=== PATIENT | female | born 1970 | race Caucasian/White ===

== ENCOUNTER 2022-04-29 21:07 | Emergency (ER) | payer OTHER, MEDICAID, SELFPAY ==
[2022-04-29 21:10] VITALS: BP 144/83; PULSE 85; RESP 21; TEMP 37.1; O2SAT 100; BMI 23.0
[2022-04-29 21:12] VITALS: BP 144/83; PULSE 72; O2SAT 98
--- NOTE | 2022-04-29 21:15 | DI.RAD.S_ITS ---
PROCEDURE: XR CHEST 1V INDICATIONS: chest pain TECHNIQUE: One view of the chest was acquired. COMPARISON: None. FINDINGS: Surgical changes and devices: None. Lungs and pleura: Lungs are clear. No pleural effusions or pneumothorax. Mediastinum: Mediastinal contours appear normal. Heart size is normal. Bones and chest wall: No suspicious bony lesions. Overlying soft tissues appear unremarkable. IMPRESSION: 1. No acute cardiopulmonary disease. Dictated by: Franky Pathak M.D. on 04/29/2022 at 23:26 Approved by: Franky Pathak M.D. on 04/29/2022 at 23:27
[2022-04-29 21:30] VITALS: BP 133/88; PULSE 66; RESP 13; O2SAT 98
[2022-04-29 21:41] LABS: INR 1.1 (0.9-1.3); Prothrombin Time 12.2 SECONDS (10.1-12.7)
[2022-04-29 21:42] LABS: Add Manual Diff / Slide Review NO; Basophils Absolute Auto 0 /uL (0-100); Basophils Percent Auto 0.4 % (0-2); Eosinophils Absolute Auto 100 /uL (0-450); Eosinophils Percent Auto 1.4 % (2-4); Hematocrit 37.6 % (36-46); Hemoglobin 12.6 g/dL (12.0-16.0); Lymphocytes Absolute Auto 1200 /uL (1100-4500); Lymphocytes Percent Auto 18.4 % (25-40); Mean Corpuscular HGB Conc 33.5 % (30-36); Mean Corpuscular Hemoglobin 28.4 PG (26-34); Mean Corpuscular Volume 84.9 fL (80-100); Monocytes Absolute Auto 600 /uL (0-900); Monocytes Percent Auto 9.1 % (3-14); Neutrophils Absolute Auto 4600 /uL (1500-7000); Neutrophils Percent Auto 70.7 % (50-75); Platelet Count 288 X10^3/uL (150-400); Red Blood Cell Count 4.43 X10^6/uL (4.0-5.2); Red Cell Distribution Width 13.1 % (11.6-14.8); White Blood Cell Count 6.6 X10^3/uL (4.5-11.0)
[2022-04-29 21:44] LABS: PTT Partial Thromboplastin Tim 33 SECONDS (26-36)
[2022-04-29 21:47] LABS: Alanine Aminotransferase 14 IU/L (<35); Albumin 4.1 g/dL (3.5-5.0); Albumin Globulin Ratio 1.3 (1.0-2.8); Alkaline Phosphatase 72 U/L (38-126); Aspartate Aminotransferase 20 IU/L (14-36); BUN Creatinine Ratio 16.7 (6-22); Bilirubin Total 0.7 mg/dL (0.2-1.3); Blood Urea Nitrogen 11 mg/dL (7-17); Calcium 8.9 mg/dL (8.4-10.2); Carbon Dioxide 29 mmol/L (22-32); Chloride 101 mmol/L (98-107); Creatine Kinase 34 U/L (30-135); Estimated Glomerular Filt Rate > 60 mL/min (>60); Globulin 3.1 g/dL (1.7-4.1); Glucose 106 mg/dL (70-100); HEMOLYSIS < 15 (0-50); Lipase 79 U/L (23-300); Magnesium 1.7 mg/dL (1.6-2.3); Potassium 3.9 mmol/L (3.4-5.1); Sodium 138 mmol/L (137-145); Total Protein 7.2 g/dL (6.3-8.2)
[2022-04-29 21:58] LABS: Troponin I < 0.012 ng/mL (0.01-0.034)
[2022-04-29 22:00] VITALS: BP 144/84; PULSE 60; RESP 16; O2SAT 99
[2022-04-29 22:30] VITALS: BP 155/82; PULSE 56; RESP 15; O2SAT 99
[2022-04-29 23:00] VITALS: BP 151/82; PULSE 60; RESP 16; O2SAT 99
[2022-04-29 23:54] LABS: Troponin I < 0.012 ng/mL (0.01-0.034)
--- NOTE | 2022-04-30 01:09 | ED.CHESTPAIN ---
HPI - Chest Pain General Chief Complaint: Chest Pain Stated Complaint: Heart burn and chest pain, Nausea Time Seen by Provider: 04/29/22 23:44 Source: patient Mode of arrival: Ambulatory Limitations: no limitations History of Present Illness HPI narrative: 51-year-old woman with history of colon polyps and a strong family history for cardiac disease with a sister who had open-heart surgery the age of 49 for ischemic disease and a father with his 1st OR in his 50s who at the age of 72 from cardiac disease presents with severe epigastric pain. Began yesterday and has increased over the ensuing 24 hours. Worse with movement and palpation of the abdomen. Not associated with vomiting but she has been nauseated. She has not noted any black stools or diarrhea. She does not complain of chronic heartburn and does not note that she has changed diet, does not typically take any medications specifically tries to avoid even [id number] medications such as nonsteroidals. She denies headache, fever, cough, palpitations. Related Data Previous Rx's Medication Instructions Recorded omeprazole 40 mg capsule,delayed 40 mg PO DAILY #30 caps 04/30/22 release Allergies Allergy/AdvReac Type Severity Reaction Status Date / Time No Known Drug Allergies Allergy Verified 04/29/22 21:16 Review of Systems Review of Systems Narrative: Remainder of complete review of systems is otherwise unremarkable except for that included in the HPI. Patient History Social History Smoking Status: Unknown if ever smoked Smoking Status: Unknown if ever smoked alcohol intake frequency: holidays/special occasions only Substance Use Type: does not use Exam Initial Vital Signs Initial Vital Signs: Vital Signs Temperature 98.7 F 04/29/22 21:10 Pulse Rate 85 04/29/22 21:10 Respiratory Rate 21 04/29/22 21:10 Blood Pressure 144/83 H 04/29/22 21:10 Pulse Oximetry 100 04/29/22 21:10 Oxygen Delivery Method 04/29/22 21:10 General: Healthy appearing, in no acute distress. Able to give a complete and coherent history. Well-nourished well-developed HEENT: Moist mucous membranes, normal sclera with reactive pupils, Neck: No JVD, supple Respiratory: Lungs are clear to auscultation, no wheezing no rales no rhonchi. Full and symmetrical air movement Cardiac: Regular rate and rhythm no murmurs no bruits Abdomen: Soft, mild epigastric to left upper quadrant tenderness without rebound or guarding, good bowel tones, no flank pain Skin: Warm and dry, no rashes Neurologic: Grossly neurologically intact with no obvious asymmetries or abnormalities Extremities: No trauma, well perfused Psych: Cooperative, appropriate insight and affect Course Orders Ordered: ED Orders 04/29/22 21:15 XR chest 1V Stat 04/29/22 21:21 Complete Blood Count AUTO DIFF Stat Comprehensive Metabolic Panel Stat Lipase Stat Magnesium Stat Partial Thromboplastin Time Stat Prothrombin Time INR Stat Troponin & CK Cardiac Panel Stat 04/29/22 21:22 EKG-12 Lead Stat 04/29/22 23:25 Trop I [Troponin I] Stat Vital Signs Vital signs: Vital Signs - 8 hr 04/29/22 21:10 04/29/22 21:12 04/29/22 21:12 Temperature 98.7 F Pulse Rate 85 72 Respiratory Rate 21 Blood Pressure 144/83 H 144/83 H Pulse Oximetry 100 98 Oxygen Delivery Method Room Air 04/29/22 21:30 04/29/22 21:30 04/29/22 22:00 Temperature Pulse Rate 66 Respiratory Rate 13 Blood Pressure 133/88 144/84 H Pulse Oximetry 98 Oxygen Delivery Method 04/29/22 22:00 04/29/22 22:30 04/29/22 22:30 Temperature Pulse Rate 60 56 L Respiratory Rate 16 15 Blood Pressure 155/82 H Pulse Oximetry 99 99 Oxygen Delivery Method 04/29/22 23:00 04/29/22 23:00 Temperature Pulse Rate 60 Respiratory Rate 16 Blood Pressure 151/82 H Pulse Oximetry 99 Oxygen Delivery Method MDM - Chest Pain Lab Data Result diagrams: 04/29/22 21:21 04/29/22 21:21 Labs: Lab Results 04/29/22 04/29/22 04/29/22 Range/Units 21:21 21:21 21:21 WBC 6.6 (4.5-11.0) X10^3/uL RBC 4.43 (4.0-5.2) X10^6/uL Hgb 12.6 (12.0-16.0) g/dL Hct 37.6 (36-46) % MCV 84.9 (80-100) fL MCH 28.4 (26-34) PG MCHC 33.5 (30-36) % RDW 13.1 (11.6-14.8) % Plt Count 288 (150-400) X10^3/uL Neut % (Auto) 70.7 (50-75) % Lymph % (Auto) 18.4 L (25-40) % [place] % (Auto) 9.1 (3-14) % Eos % (Auto) 1.4 L (2-4) % Baso % (Auto) 0.4 (0-2) % Neut # (Auto) 4600 (1394-1849) /uL Lymph # (Auto) 1200 (2025-6623) /uL [place] # (Auto) 600 (0-900) /uL Eos # (Auto) 100 (0-450) /uL Baso # (Auto) 0 (0-100) /uL PT 12.2 (10.1-12.7) SECONDS INR 1.1 (0.9-1.3) APTT 33 (26-36) SECONDS Sodium 138 (137-145) mmol/L Potassium 3.9 (3.4-5.1) mmol/L Chloride 101 (98-107) mmol/L Carbon Dioxide 29 (22-32) mmol/L BUN 11 (7-17) mg/dL Creatinine 0.66 (0.52-1.04) mg/dL Estimated GFR > 60 (>60) mL/min BUN/Creatinine Ratio 16.7 (6-22) Glucose 106 H (70-100) mg/dL Calcium 8.9 (8.4-10.2) mg/dL Magnesium 1.7 (1.6-2.3) mg/dL Total Bilirubin 0.7 (0.2-1.3) mg/dL AST 20 (14-36) IU/L ALT 14 (<35) IU/L Alkaline Phosphatase 72 (38-126) U/L Total Creatine Kinase 34 (30-135) U/L CK-MB (CK-2) TNP CK-MB (CK-2) Rel Index TNP Troponin I < 0.012 (0.01-0.034) ng/mL Total Protein 7.2 (6.3-8.2) g/dL Albumin 4.1 (3.5-5.0) g/dL Globulin 3.1 (1.7-4.1) g/dL Albumin/Globulin Ratio 1.3 (1.0-2.8) Lipase 79 (23-300) U/L 04/29/22 Range/Units 23:25 WBC (4.5-11.0) X10^3/uL RBC (4.0-5.2) X10^6/uL Hgb (12.0-16.0) g/dL Hct (36-46) % MCV (80-100) fL MCH (26-34) PG MCHC (30-36) % RDW (11.6-14.8) % Plt Count (150-400) X10^3/uL Neut % (Auto) (50-75) % Lymph % (Auto) (25-40) % [place] % (Auto) (3-14) % Eos % (Auto) (2-4) % Baso % (Auto) (0-2) % Neut # (Auto) (4359-1165) /uL Lymph # (Auto) (8494-5678) /uL [place] # (Auto) (0-900) /uL Eos # (Auto) (0-450) /uL Baso # (Auto) (0-100) /uL PT (10.1-12.7) SECONDS INR (0.9-1.3) APTT (26-36) SECONDS Sodium (137-145) mmol/L Potassium (3.4-5.1) mmol/L Chloride (98-107) mmol/L Carbon Dioxide (22-32) mmol/L BUN (7-17) mg/dL Creatinine (0.52-1.04) mg/dL Estimated GFR (>60) mL/min BUN/Creatinine Ratio (6-22) Glucose (70-100) mg/dL Calcium (8.4-10.2) mg/dL Magnesium (1.6-2.3) mg/dL Total Bilirubin (0.2-1.3) mg/dL AST (14-36) IU/L ALT (<35) IU/L Alkaline Phosphatase (38-126) U/L Total Creatine Kinase (30-135) U/L CK-MB (CK-2) CK-MB (CK-2) Rel Index Troponin I < 0.012 (0.01-0.034) ng/mL Total Protein (6.3-8.2) g/dL Albumin (3.5-5.0) g/dL Globulin (1.7-4.1) g/dL Albumin/Globulin Ratio (1.0-2.8) Lipase (23-300) U/L Imaging Data Chest x-ray: Radiologist's Impression: FINDINGS:? ? Surgical changes and devices:? None.? ? Lungs and pleura:? Lungs are clear.? No pleural effusions or pneumothorax.? ? Mediastinum:? Mediastinal contours appear normal.? Heart size is normal.? ? Bones and chest wall:? No suspicious bony lesions.? Overlying soft tissues appear unremarkable.? ? IMPRESSION:? ? 1.? No acute cardiopulmonary disease. ? ? ? Dictated by: Franky Pathak M.D. on 04/29/2022 at 23:26 ? ? ECG Data Interpretation: Sinus rhythm at a rate of 66 Left anterior fascicular block with left axis deviation No acute ischemic changes MDM Narrative Medical decision making narrative: 51-year-old woman presents with 48 hours of increasing epigastric pain. No evidence of acute coronary syndrome, infection, pancreatitis, gallstones, pneumonia. She does not have a history of heartburn has not been using medications that would exacerbate symptoms. She does have a strong family history for coronary disease. She is given a dose of IV pantoprazole and will ask her to complete 4 weeks of omeprazole as an outpatient. I suspect that the majority of her pain is gastritis with possibility of ulceration developing but I do not have a concern for any acute ulcer perforation at this time. She states that she does not have a primary care physician but will begin to look for 1. Encouraged her to follow up to make sure that her stomach issues are improving and also to talk about her significant family history for coronary disease and what appropriate screening strategies at the age of 51 would be helpful for her. Questions are answered and she is safe for home discharge Discharge Plan Departure Patient Disposition: Home Clinical Impression: Acute epigastric pain Instructions: DI for Epigastric Pain Activity Restrictions/Additional Instructions: Thank you for coming in today Your workup today was very reassuring. There is no evidence for heart attack or heart attack like syndromes, pneumonia, collapsed lungs, pancreatitis, bleeding from your stomach, gallstones or gallbladder issues. With the area of tenderness I suspect that this is from your stomach. When the lining of your stomach is irritated that is called gastritis and with that progresses it can turn into an ulcer. I am going to suggest that you use a med resolved daily for a month. This is a stomach acid press technician medicine. It may take 4-5 days before you notice significant improvement but it should keep getting better. If you choose to use pain medicine, please use Tylenol only. You do need to follow-up with the primary care doctor. At some point you need to review your family history of cardiac issues and likely would benefit from outpatient cardiac stress testing. If you find that you are getting worse or develop any new symptoms, please feel free to return to the emergency department for further evaluation. Prescriptions: New omeprazole 40 mg capsule,delayed release(DR/EC) 40 mg PO DAILY Qty: 30 1RF
[2022-04-30] MEDS: PANTOPRAZOLE 40 MG VIAL 80 MG IV (01:40)
== END 2022-04-30 01:46 | disposition home or self-care (01) ==
PROVIDERS: Emergency Provider Emergency Medicine
DX: R10.13 Epigastric pain (principal); R11.2 Nausea with vomiting, unspecified
CPT/HCPCS: 36415; 71045; 80053; 82550; 83690; 83735; 84484; 85025; 85610; 85730; 93005; 93010; 96374; 99284; C9113